=== PATIENT | male | born 1945 | race Caucasian/White ===

== ENCOUNTER 2022-11-27 10:30 | Emergency (ER) | payer MEDICARE ==
[~2022-11-27] VITALS: Ht 172.7 cm; Wt 72.6 kg
[2022-11-27] MEDS ORDERED: LACTATED RINGERS 1000ML 1,000 ML IV ONE (11:00)
[2022-11-27 11:09] LABS: BASOPHILS % (AUTO) 0.4 % (0.0-5.0); EOSINOPHILS % (AUTO) 3.3 % (0.0-8.0); HEMATOCRIT 40.9 % (42-54); LYMPHOCYTES % (AUTO) 18.4 % (21.0-51.0); MEAN CORPUSCULAR HEMOGLOBIN 33.9 pg (27.0-33.0); MEAN CORPUSCULAR HGB CONC 34.5 g/dL (32.0-36.0); MEAN CORPUSCULAR VOLUME 98.3 fL (79-99); MONOCYTES % (AUTO) 8.2 % (3.0-13.0); PLATELET COUNT (AUTO) 132 K/uL (130-400); RED BLOOD CELL COUNT(AUTO) 4.16 MIL/uL (4.50-6.20); WHITE BLOOD COUNT (AUTO) 4.5 K/uL (4.8-10.8)
[2022-11-27 11:15] LABS: CREATININE 1.2 mg/dL (0.5-1.5); POTASSIUM 3.9 mmol/L (3.5-5.1)
[2022-11-27 11:16] LABS: INR 1.1 (0.85-1.15); PROTHROMBIN TIME 11.9 SEC (9.6-11.6)
[2022-11-27 11:17] LABS: PARTIAL THROMBOPLASTIN TIME 24.2 SEC (26.3-35.5)
[2022-11-27 11:19] LABS: ALBUMIN 2.9 g/dL (3.5-5.0); MAGNESIUM 1.9 mg/dL (1.80-2.40); TOTAL PROTEIN, SERUM 5.7 g/dL (6.0-8.3)
[2022-11-27 11:42] LABS: B-TYPE NATRIURETIC PEPTIDE 26 pg/mL (0-100)
[2022-11-27 12:17] VITALS: BP 107/64
[2022-11-27 13:14] LABS: APPEARANCE,URINE CLEAR (CLEAR); BILIRUBIN,URINE NEGATIVE (NEGATIVE); COLOR,URINE LIGHT-YELLOW (YELLOW); GLUCOSE, URINE (UA) NEGATIVE (NEGATIVE); KETONES,URINE NEGATIVE (NEGATIVE); LEUKOCYTE ESTERASE ,URINE NEGATIVE Leu/uL (NEGATIVE); NITRATE,URINE NEGATIVE (NEGATIVE); OCCULT BLOOD,URINE NEGATIVE (NEGATIVE); PH,URINE 7.5 (5.0-8.0); PROTEIN,URINE NEGATIVE (NEGATIVE); UROBILINOGEN,URINE 0.2 mg/dL (0.2-1.0)
== END 2022-11-27 14:43 | disposition home or self-care (01) ==
LOC: EDH 10:30
DX: R55 Syncope and collapse (principal); E86.0 Dehydration; E78.00 Pure hypercholesterolemia, unspecified; I10 Essential (primary) hypertension; Z95.1 Presence of aortocoronary bypass graft
CPT/HCPCS: 99285; 96360; 70450; 71045; 80061; 82550; 83735; 84484; 80053; 83880; 85025; 85378; 85610; 85730; 81003; 36415; 93005; J7030